=== PATIENT | male | born 1955 | race Hispanic/Latino ===

== ENCOUNTER 2016-12-30 22:05 | Emergency (ER) | payer OTHER ==
[~2016-12-30] VITALS: Ht 167.6 cm; Wt 164.0 kg
[~2016-12-30 22:05] MED LIST: ATOR40TA69 PO; CARV12.52 PO; FLUO20CA25 PO; RANI300T4 PO; ZIT250 PO; ZOV800 PO
[2016-12-30 22:17] VITALS: BP 174/85; PULSE 102; RESP 18; O2SAT 97
--- NOTE | 2016-12-30 22:26 | ED.REPORT ---
HPI-Chest Pain 40 and Over Date of Service Dec 30, 2016 ED Provider: Dr. Estevan Pastrana MD A 61 year old male with a history of SD x4, CAD s/p LAD stent, hyperlipidemia, CVA and diabetes mellitus presents to the ED with chest pain that began yesterday.The pain in his chest has been constant since onset. He reports that the pain initially felt like indigestion and radiated up to his sternum. Associated symptoms include numbness in his arms, subjective fever, shortness of breath and epigastric pain. Patient states that he begins to experience dizziness after standing up. His current symptoms feel similar to his previous SD and he rates his current pain as a 9/10. Patient reports taking 81mg of aspirin this morning. Nursing Notes Stated Complaint: CHEST PAIN Chief Complaint: Chest Pain Nursing Notes Reviewed: Yes Allergies: Coded Allergies: No Known Allergies (Verified , 07/01/16) Scheduled Acyclovir (Acyclovir) 800 Mg Tab 800 MG PO 5XD Atorvastatin Calcium (Atorvastatin Calcium) 40 Mg Tablet 40 MG PO ONCE Azithromycin (Zithromax) 250 Mg Tablet 250 MG PO DAILY Carvedilol (Carvedilol) 12.5 Mg Tablet 12.5 MG PO BID Fluoxetine (Fluoxetine) 20 Mg Capsule 40 MG PO ONCE Ranitidine (Ranitidine) 300 Mg Tablet 300 MG PO ONCE General Time Seen by MD: 22:25 Chief Complaint Chest pain Hx Obtained From: Patient Arrived By: Walk-in Sudden in Onset?: No Onset Occurred: 1 - 4 hours ago Symptom Duration: Since onset Location: : Chest left: Chest right: Epigastric Quality: Painful Radiation: : Abdomen Migration/Movement: Reports: Chest to abdomen Severity: Current: Pain level 9 out of 10 Severity: Maximum: Pain level 9 out of 10 Associated with: Reports: Diaphoresis, Numbness/Tingling, Shortness of Breath Pertinent Negative: Pt denies other symptoms Recent Healthcare: No recent doctor visit, No recent hospitalization Risk Factors )( CAD Risk Stratification Diabetes mellitus Hyperlipidemia Hypertension Known CAD Risk factors reviewed )( TAD Risk Stratification Hypertension Risk factors reviewed )( PE Risk Stratification Risk factors reviewed Past Medical History Past Medical History 1. Coronary artery disease, status post anterior STEMI and LAD stent in January 2009. Most recent heart catheterization on September 26, 2009, showed mild diffuse disease in the LAD and left circumflex. NSTEMI 05/04/2015 2. Diabetes mellitus type 2. 3. Hypertension. 4. Hyperlipidemia. 5. 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 perforated gastroduodenal ulcer 7. H pylori infection 8. 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 Past Surgical History laparotomy with antrectomy for perforated gastroduodenal ulcer stenting of LAD Reports: CABG Family History Noncontributory Smoking History Current Every Day Smoker Social History Alcohol Use: Denies alcohol use Drug Use: Denies drug use Other Social History: Good social support, , Local resident Ambulatory Status Independent Review of Systems Constitutional: Reports: Fever (subjective ) Respiratory: Reports: Shortness of breath Cardiovascular: Reports: Chest pain GI: Reports: Abdominal pain (epigastric ) Neurologic: Reports: Dizziness, Numbness (upper extremities) Complete sys rev & neg: except as marked. Physical Exam Initial Vital Signs Vital Signs (First) Date Time Temp Pulse Resp B/P Pulse Ox O2 Delivery O2 Flow Rate FiO2 12/30/16 22:17 36.6 102 18 174/85 97 Room Air Initial VS: Reviewed Head / Eyes: Atraumatic, Normocephalic, PERRL Neck: Supple, Non-tender, Full range of motion Extremities: Vascular intact, Neuro intact, No swelling, No tenderness Skin: Warm, Dry, No cyanosis Neurologic: Alert, Oriented, Nonfocal Psychiatric: Mood/affect normal, Behavior normal, Normal thought content General/Constitutional: Awake, Alert, Well appearing, Well developed Respiratory / Chest: Atraumatic, Breath sounds NL, Breath sounds = bilat, No respiratory distress Chest Wall / Ribs: Positive: Chest tender upper L, Chest tender upper R Cardiovascular: Heart rate NL, Regular rhythm, Heart sounds NL CARDIO: Trace peripheral edema Abdomen: Atraumatic, Soft Tenderness/Guarding/Rebound: Positive: Tender LLQ..., Tender epigastric Interpretation & Diagnostics Lab Results Interpretation Result Diagram: 12/30/16222412/30/162224 Test 12/30/16 22:25 White Blood Count 15.9th/mm3 (3.8-10.1) Red Blood Count 4.63mil/mm3 (4.40-5.80) Hemoglobin 7.8g/dL (13.8-17.2) Hematocrit 39.1% (41.0-50.0) Mean Corpuscular Volume 84.4fL (81-100) Mean Corpuscular Hemoglobin 16.8pg (27.0-35.0) Mean Corpuscular Hemoglobin Concent 19.9% (32.0-37.0) Red Cell Distribution Width 16.7% (12.3-15.4) Platelet Count 328bil/L (150-400) Neutrophils (%) (Auto) 69.3% (40-74) Lymphocytes (%) (Auto) 12.1% (14-46) Monocytes (%) (Auto) 6.3% (4-12) Eosinophils (%) (Auto) 11.5% (0-5) Basophils (%) (Auto) 0.4% (0-3) D-Dimer 2.09mg/L FEU (<0.50) Sodium Level 135mEq/L (134-144) Potassium Level 5.0mEq/L (3.5-5.2) Chloride Level 99mEq/L (97-108) Carbon Dioxide Level 21mmol/L (18-29) Blood Urea Nitrogen 16mg/dL (8-27) Creatinine 1.00mg/dL (0.76-1.27) Estimat Glomerular Filtration Rate 81mL/min (>59) Glucose Level 307mg/dL (60-99) Calcium Level 9.1mg/dL (8.5-10.1) Magnesium Level 1.9mg/dL (1.6-2.6) Total Bilirubin 0.2mg/dL (0.0-1.2) Aspartate Amino Transf (AST/SGOT) 24U/L (0-50) Alanine Aminotransferase (ALT/SGPT) 18U/L (0-44) Alkaline Phosphatase 116U/L (25-160) Troponin T 0.010ug/L (0.0-0.011) Total Protein 7.3g/dL (6.4-8.4) Albumin 3.8g/dL (3.4-5.0) Hold Paige Top Tube Received (Received) ECG Interpretation ECG Interpretation: Sinus rhythm Rate 98 Inferior infarct Time: 22:19 Interpreted by: ED physician X-Ray Chest Interpretation Chest Xray Interpretation: IMPRESSION: Right middle lobe infiltrate Interpretation / Wet Read by: Wet read ED physician Re-Eval/Medical Decision Time of Eval: 01:17 Patient Status: Condition improved Re-Evaluation/Progress Note: Pt is informed of his lab results, EKG results and chest X-ray results. He understands and agrees with the current treatment plan to obtain a CT following elevated D-dimer. Time of Eval: 02:46 Patient Status: Condition improved Re-Evaluation/Progress Note: Pt's symptoms have improved. He is informed of his CT results and diagnosis. All questions about follow-up are addressed. Counseled Regarding: Diagnosis, Lab results, Need for follow-up, When/why to return to ED Discharge & Departure Shift Change Sign-Out Patient Care Transferred: Yes Discussed Complaint(s): Yes Laboratory Evaluation: Lab evaluation discussed Imaging Studies: Ordered, not yet done Response to Therapy: Unchanged Dr. Powell Primary Impression: Chest pain Disposition: Home Discharge Condition All VS Reviewed: Yes Condition: Improved Referrals: [facility] (PCP) Sameer Rea MD Care Transferred to: Dr. Powell Care Transferred at: 03:00 Scribe Attestation Portions of this note were transcribed by Anny Luz. I, Dr. Pastrana personally performed the history, physical exam and medical decision-making; I reviewed and confirmed the accuracy of the information in the transcribed note. Signed by: Emelyn Benedict, 12/31/16 0130. copies to: [facility]; Sameer Rea MD, Kirk H MD Dec 30, 2016 22:26 ANNY LUZ Dec 30, 2016 22:32 personally performed the history, physical exam and medical decision-making; I reviewed and confirmed the accuracy of the information in the transcribed note. Signed by: Emelyn Benedict, 12/31/16 0130. copies to: [facility]; Sameer Rea MD, Kirk H MD Dec 30, 2016 22:26 ANNY LUZ Dec 30, 2016 22:32
[2016-12-30] MEDS ORDERED: 0.9% Sodium Chloride 1,000 ML IV ONE (22:31)
[2016-12-30 22:34] LABS: BASOPHILS % (AUTO) 0.4 % (0-3); EOSINOPHILS % (AUTO) 11.5 % (0-5); MONOCYTES % (AUTO) 6.3 % (4-12); Mean Corpuscular Hemoglobin 16.8 pg (27.0-35.0); Mean Corpuscular Volume 84.4 fL (81-100); NEUTROPHILS % (AUTO) 69.3 % (40-74); Platelet Count 328 bil/L (150-400)
[2016-12-30] MEDS ORDERED: Nitroglycerin 2% 1 Gm Ointment TOPICAL ONE (22:35)
[2016-12-30] MEDS ORDERED: Ondansetron 2 mg/mL 2 mL Inj IVPUSH ONE (22:35)
[2016-12-30 22:54] LABS: TROPONIN T 0.01 ug/L (0.0-0.011)
[2016-12-30 23:05] LABS: Magnesium 1.9 mg/dL (1.6-2.6)
[2016-12-30 23:23] VITALS: BP 130/76; PULSE 98; RESP 17; O2SAT 95
[2016-12-31 01:08] VITALS: BP 120/88; PULSE 95; O2SAT 100
[2016-12-31 01:40] VITALS: BP 140/84; PULSE 103; RESP 18; O2SAT 94
[2016-12-31 04:29] VITALS: BP 134/77; PULSE 86; RESP 16; O2SAT 95
--- NOTE | 2016-12-31 08:45 | DRSVH ---
PROCEDURE: CT ANGIO CHEST PULMONARY EMBOLISM ([id number]) INDICATIONS: tachycardia, chest pain TECHNIQUE: After the administration of intravenous contrast, 2 mm thick sections acquired from the pulmonary api cuca to the posterior costophrenic angles. 3-dimensional maximum intensity projection (MIP) coronal a nd sagittal reformats were then acquired through the thorax. For radiation dose reduction, the follo wing was used: automated exposure control, adjustment of mA and/or kV according to patient size. COMPARISON: [facility], CT, ABD/PELVIS W/CON (PNL), 09/05/2014, 10:58. [facility], CT, ABD/PELVIS W/O CON (PNL), 09/24/2014, 12:31. [facility], CT, ABD/PELVIS W/CON (PNL), 08/22/2014, 17:05. [facility], CT, CT ANGIO CHEST, 05/04/2015, 21:19. FINDINGS: Image quality: Excellent. Pulmonary arteries: Pulmonary arteries are normal in size, and demonstrate no intraluminal filling d efects to suggest central pulmonary embolism. Lungs and pleura: This is noted in the dependent portions of the lung bases. No pleural effusions or pneumothorax. Central and peripheral airways are patent. Mediastinum: Heart size is normal, without pericardial effusion. Presence of an endovascular stent n oted in the left coronary vasculature. No mediastinal or hilar adenopathy. Thoracic aorta is normal in caliber and enhancement. Esophagus is normal in caliber, without hiatal hernia. Bones and chest wall: No suspicious bony lesions. Ribs and thoracic spine appear intact throughout. Thyroid gland is within normal limits. No axillary or supraclavicular adenopathy. Abdomen: Multiple surgical clips noted adjacent to the GE junction; please correlate with surgical h istory. Small cysts versus hemangiomas noted in the liver which are stable compared to prior CT scans Visualized upper abdominal solid organs otherwise appear normal in the early arterial phase of enhanc ement. IMPRESSION: No pulmonary embolus. Dictated by: Shefali Pond MD, PhD on 12/31/2016 at 8:29 Approved by: Shefali Pond MD, PhD on 12/31/2016 at 8:43
--- NOTE | 2016-12-31 09:49 | DRSVH ---
PROCEDURE: X-RAY CHEST ONE VIEW, PORTABLE ([id number]) INDICATIONS: CHEST PAIN TECHNIQUE: One view of the chest was acquired. COMPARISON: [facility], CR, XR CHEST 1VW (PORTABLE), 07/01/2016, 2:44. FINDINGS: Surgical changes and devices: Epigastric surgical clips. Lungs and pleura: No pleural effusions or pneumothorax. Lungs are clear. Lung volumes are low. Mediastinum: Mediastinal contours appear normal. Heart size is normal. Bones and chest wall: No suspicious bony lesions. Overlying soft tissues appear unremarkable. IMPRESSION: Expiratory chest demonstrating no definite acute cardiopulmonary process. Dictated by: Nimesh Rose RRA Interpreted: Marichuy Loving MD on 12/31/2016 at 9:47 Transcribed by: EDWARD on 12/31/2016 at 9:48 Approved by: Marichuy Loving M.D. on 01/01/2017 at 8:09
== END 2016-12-31 04:30 | disposition home or self-care (01) ==
LOC: SED 22:05
DX: R07.9 Chest pain, unspecified (principal); E11.9 Type 2 diabetes mellitus without complications; I10 Essential (primary) hypertension; E78.5 Hyperlipidemia, unspecified; I25.2 Old myocardial infarction; Z86.73 Personal history of transient ischemic attack (TIA), and cerebral infarction without residual deficits; F17.200 Nicotine dependence, unspecified, uncomplicated; Z95.1 Presence of aortocoronary bypass graft
CPT/HCPCS: 36415; 71010; 71275; 80053; 82948; 83735; 84484; 85025; 85378; 93005; 96361; 96374; 96375; 99285; J2060; J2270; J2405; J7030; Q9967

== ENCOUNTER 2017-03-25 20:13 | Emergency (ER) | payer MEDICAID, OTHER ==
[~2017-03-25 20:13] MED LIST changes: +ASPI81TA3 PO; +Artificial Tears RIGHT_EYE; +CLOP75TA28 PO; +CLOT15CR66 TP; +INSLIS SUBQ; +INSU100V7 SUBQ; +LISI-567 PO; +OXYC1TAB24 PO; +PRED-508 PO; +TOPI25TA34 PO; +VALA500T2 PO; -ZIT250 PO; -ZOV800 PO
[2017-03-25 20:21] VITALS: BP 172/85; PULSE 96; RESP 18; O2SAT 98
--- NOTE | 2017-03-25 20:28 | ED.REPORT ---
HPI-Stroke / CVA Mar 25, 2017 ED Provider: Robert Galdamez DO A 61 year old male on Plavix and aspirin with a history of CVAs, stent x2, diabetes, hypertension, CAD, MO x4, Campbell's palsy and hyperlipidemia presents to the ED due to a possible stroke with last known normal of 19:30. The pt's first CVA was two years ago with speech and memory deficits. He had another CVA approximately six months ago with a resulting right sided facial droop, but this seemed to have resolved by two months ago. The pt was diagnosed with Campbell' s palsy and migraines last week and discharged from the hospital on 03/19/2017. During that time, the pt experienced recurrent right-sided facial droop, right extremities numbness and right extremity weakness. The pt began experiencing a headache thirty minutes ago and his soon noticed increased right facial droop and right-sided weakness. The pt admits to nausea but denies vomiting. The pt denies history of seizures. Nursing Notes Stated Complaint: CHEST PAIN, NUMBNESS ON RIGHT KNEE DOWN, HEADACHE Chief Complaint: Stroke Symptoms Nursing Notes Reviewed: Yes Allergies: Coded Allergies: No Known Allergies (Verified , 03/25/17) Scheduled ([Artificial Tears]) 15 DROP/ML SOLUTION 1-2 DROP RIGHT_EYE TID Aspirin Chew (Aspirin Chew) 81 Mg Chew 81 MG PO QAM (Reported) Atorvastatin Calcium (Atorvastatin Calcium) 40 Mg Tablet 40 MG PO HS (Reported) Carvedilol (Carvedilol) 12.5 Mg Tablet 12.5 MG PO BID (Reported) Clopidogrel (Clopidogrel) 75 Mg Tablet 75 MG PO DAILY Clotrimazole (Itch Relief) 1 % Cream..g. 1 APPLIC TP QAM (Reported) TO FEET AFTER SHOWER Fluoxetine (Fluoxetine) 20 Mg Capsule 40 MG PO QAM (Reported) Insulin Glargine (Lantus U100 Insulin Vial) 100 Unit/Ml Vial 25 UNIT SUBQ QAM Insulin Human Lispro (HumaLOG U100 Insulin Vial) 100 Unit/Ml Unit 5 UNIT SUBQ BIDWM (Reported) Check blood sugars before meals and at bedtime. Use correction factor only before meals. Blood Sugar Lispro Correction: <151, 0 units; 151-175, 1 unit; 176-200, 2 units; 201-225, 3 units; 226-250, 4 units; 251-275, 5 units; 276-300 , 6 units; 301-325, 7 units; 326-350, 8 units; 351-375, 9 units; 376-400, 10 units; >400, 12 units. Insulin Human Lispro (HumaLOG U100 Insulin Vial) 100 Unit/Ml Unit 0 UNIT SUBQ WMHS Check blood sugars before meals and at bedtime. Use correction factor only before meals. Blood Sugar Lispro Correction: <151, 0 units; 151-175, 1 unit; 176-200, 2 units; 201-225, 3 units; 226-250, 4 units; 251-275, 5 units; 276-300 , 6 units; 301-325, 7 units; 326-350, 8 units; 351-375, 9 units; 376-400, 10 units; >400, 12 units. Lisinopril (Lisinopril) 20 Mg Tablet 20 MG PO QAM (Reported) Prednisone (Deltasone) 20 Mg Tablet 60 MG PO DAILY Ranitidine (Ranitidine) 300 Mg Tablet 300 MG PO HS (Reported) Topiramate (Topamax) 25 Mg Tablet 25 MG PO BID Valacyclovir HCl (Valtrex) 500 Mg Tablet 1,000 MG PO TID Scheduled PRN oxyCODONE-Acetaminophen 5-325 mg (oxyCODONE-Acetaminophen 5-325 mg) 1 Each Tablet 1 TAB PO Q6H PRN PRN For Pain General Time Seen by Provider: 20:28 Chief Complaint Other (Possible stroke) Hx Obtained From: Patient Arrived By: Walk-in Time last known well 19:30 Sudden in Onset?: Yes Symptom Duration: Since onset Progression Since Onset: Unchanged Recent Healthcare: Recent doctor visit, Recent hospitalization Similar Sx Previous: Yes Risk Factors Risk Notes: Not a TPA candidate due to prior CVA within 3 months NIH Stroke Scale Level of Consciousness: Alert and responsive (0) Ask Month & Age: Both questions right (0) Open/Close Eyes/Hand Biological Inspector: Performs both tasks (0) Horizontal EO Movements: None (0) Visual Mathur: Partial hemianopsia (1) Facial Palsy: Unil complete, up&low (3) Right Arm Motor Drift (10s): No drift 10 sec (0) Left Arm Motor Drift (10s): No drift 10 sec (0) Right Leg Motor Drift (5s): Drift, not touch bed (1) Left Leg Motor Drift (5s): No drift 5 sec (0) Limb Ataxia FNF/Heel-Velázquez: No ataxia (0) Sensation (Arms/Legs/Face): Pinprick less sharp (1) Language Aphasia: No aphasia, normal (0) Dysarthria: No dysarthria, normal (0) Extinction/Inattention: No exctinct/inattent (0) NIHSS Score: 5 Time NIHSS Performed: 20:28 Date NIHSS Performed: Mar 25, 2017 Past Medical History Past Medical History 1. Coronary artery disease, status post anterior STEMI and LAD stent in January 2009. Most recent heart catheterization on September 26, 2009, showed mild diffuse disease in the LAD and left circumflex. NSTEMI 05/04/2015 2. Diabetes mellitus type 2. 3. Hypertension. 4. Hyperlipidemia. 5. 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 perforated gastroduodenal ulcer 7. H pylori infection 8. MO x4 9. 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 Past Surgical History laparotomy with antrectomy for perforated gastroduodenal ulcer stenting of LAD Reports: CABG Family History Noncontributory Smoking History Current Every Day Smoker Social History Alcohol Use: Denies alcohol use Drug Use: Denies drug use Other Social History: Good social support, , Local resident Ambulatory Status Independent Review of Systems Review of Systems Note: right-sided weakness right facial droop Respiratory: Denies: Non-productive cough, Shortness of breath Cardiovascular: Denies: Chest pain GI: Denies: Abdominal pain, Vomiting Musculoskeletal: Denies: Back pain, Neck pain Skin: Denies Rash Neurologic: Reports: Headache Complete sys rev & neg: except as marked. Physical Exam Initial Vital Signs Vital Signs (First) Date Time Temp Pulse Resp B/P Pulse Ox O2 Delivery O2 Flow Rate FiO2 03/25/17 20:21 36.9 96 18 172/85 98 Room Air Initial VS: Reviewed General/Constitutional: Awake, Alert, No acute distress Head / Eyes: Atraumatic, Normocephalic, PERRL, EOMI Neck: Atraumatic, Supple, Full range of motion Respiratory / Chest: Atraumatic, Breath sounds NL, Breath sounds = bilat, No respiratory distress Cardiovascular: Heart rate NL, Regular rhythm, Heart sounds NL Neurologic: Oriented X3, Speech NL complete right-sided facial weakness and facial droop including inability to close his eye ENT: Atraumatic, Airway patent, Mucous membranes moist Abdomen: Atraumatic, Soft, Non-tender Upper Extremity / MS: Atraumatic, Full range of motion Lower Extremity / Pelvis / MS: Atraumatic, Full range of motion Skin: Atraumatic, Color NL, No rash, Warm, Dry Psychiatric: Affect NL, Mood NL Back: Atraumatic, Full range of motion Interpretation & Diagnostics Lab Results Interpretation Result Diagram: 03/25/17205203/25/172052 Test 03/25/17 20:53 03/25/17 20:54 03/25/17 21:30 White Blood Count 13.1th/mm3 (3.8-10.1) Red Blood Count 4.94mil/mm3 (4.40-5.80) Hemoglobin 14.1g/dL (13.8-17.2) Hematocrit 41.6% (41.0-50.0) Mean Corpuscular Volume 84.2fL (81-100) Mean Corpuscular Hemoglobin 28.5pg (27.0-35.0) Mean Corpuscular Hemoglobin Concent 33.9% (32.0-37.0) Red Cell Distribution Width 15.6% (12.3-15.4) Platelet Count 325bil/L (150-400) Neutrophils (%) (Auto) 56.7% (40-74) Lymphocytes (%) (Auto) 27.5% (14-46) Monocytes (%) (Auto) 7.5% (4-12) Eosinophils (%) (Auto) 6.3% (0-5) Basophils (%) (Auto) 0.2% (0-3) Prothrombin Time 9.6sec (8.1-12.5) Prothromb Time International Ratio 0.90ratio Activated Partial Thromboplast Time 23.5sec (22.8-33.0) Sodium Level 135mEq/L (134-144) Potassium Level 4.4mEq/L (3.5-5.2) Chloride Level 100mEq/L (97-108) Carbon Dioxide Level 22mmol/L (18-29) Blood Urea Nitrogen 26mg/dL (8-27) Creatinine 0.88mg/dL (0.76-1.27) Estimat Glomerular Filtration Rate 94mL/min (>59) Glucose Level 295mg/dL (60-99) Calcium Level 8.5mg/dL (8.5-10.1) Total Bilirubin 0.2mg/dL (0.0-1.2) Aspartate Amino Transf (AST/SGOT) 28U/L (0-50) Alanine Aminotransferase (ALT/SGPT) 44U/L (0-44) Alkaline Phosphatase 82U/L (25-160) Troponin T < 0.010ug/L (0.0-0.011) Total Protein 6.8g/dL (6.4-8.4) Albumin 3.6g/dL (3.4-5.0) Alcohols < 10mg/dL (0-10) Hold Paige Top Tube Received (Received) Urine Color Yellow (YELLOW) Urine Appearance Clear (CLEAR,HAZY) Urine pH 6.0 (5.0-8.0) Urine Specific Hurley 1.025 (1.003-1.035) Urine Protein Negativemg/dL (NEG,TRACE) Urine Glucose (UA) >1000mg/dL (NEGATIVE) Urine Ketones Negativemg/dL (NEGATIVE) Urine Occult Blood Negative (NEGATIVE) Urine Nitrite Negative (NEGATIVE) Urine Bilirubin Negative (NEGATIVE) Urine Urobilinogen Normalmg/dL (NORMAL) Urine Leukocyte Esterase Negative (NEGATIVE) Urine RBC 0-2/hpf (0-2) Urine WBC 0-5/hpf (0-5) Urine Epithelial Cells Few/hpf (NONE-MOD) Urine Crystals None seen (NONE SEEN) Urine Bacteria Few/hpf (NONE-FEW) Urine Hyaline Casts None/lpf (NONE) Urine Granular Casts None seen (NONE SEEN) Urine Waxy Casts None seen (NONE SEEN) Urine Red Blood Cell Casts None seen (NONE SEEN) Urine White Blood Cell Casts None seen (NONE SEEN) Urine Mucus None seen (None Seen) Urine Trichomonas None seen (NONE SEEN) Urine Yeast None (NONE SEEN) Urinalysis Comment None Urine Culture Reflexed Not indicated ECG Interpretation ECG Interpretation: normal sinus rhythm with a rate of [address] abnormalities old inferior infarct when compared to previous dated 03/17/2017, heart rate is faster Time: 20:28 Interpreted by: ED physician X-Ray Chest Interpretation Chest Xray Interpretation: IMPRESSION: No acute pulmonary process. Dictated by: Naty Varela M.D. on 03/25/2017 at 21:07 Approved by: Naty Varela M.D. on 03/25/2017 at 21:08 Interpretation / Wet Read by: Interpret - Radiologist CT Head Interpretation IMPRESSION: 1. No acute intracranial process. 2. Mild atrophy and chronic microvascular ischemic changes. 3. Left frontal temporal encephalomalacia consistent with old left MCA infarction. The above findings were discussed with Dr. Robert Galdamez on 03/25/17 at 8:50 PM. This study fulfills neurological imaging criteria for inclusion or exclusion of acute stroke therapies based on available published neurological guidelines. Dictated by: Naty Varela M.D. on 03/25/2017 at 20:50 Approved by: Naty Varela M.D. on 03/25/2017 at 20:54 Interpretation / Wet Read by: Interpret - Radiologist Re-Eval/Medical Decision Med Decision/Clinical Course 61-year-old male with a remote history of CVA and multiple MIs presents with severe headache onset just prior to arrival. He was admitted and evaluated last week for another potential stroke, but MRI did not show any acute abnormalities and he left being diagnosed with a migraine headache and Campbell's palsy. Today his neurologic deficits appear to be a baseline, and his head CT shows no acute findings. Patient and his were under the understanding last week that he had had a stroke, but I clarified this with him and discussed treatment of his migraines and Campbell's palsy. He will continue his current medications and follow up with his PCP on Saturday as scheduled. Source of Hx: Old records Re-Evaluation/Progress #1: Time of Eval: 21:08 Re-Evaluation/Progress Note: Pt rechecked, who is resting. Additional physical exam is performed. Re-Evaluation/Progress #2: Time of Eval: 23:59 Patient Status: Condition improved Re-Evaluation/Progress Note: Pt rechecked, who is resting. The diagnosis and plan for discharge are discussed. The pt understands and agrees with the plan. All questions are addressed at this time. Counseled Regarding: Diagnosis, Lab results, Need for follow-up, When/why to return to ED Patient Discharge & Departure Impression: Primary Impression: Migraine headache Migraine type: unspecified Status migrainosus presence: with status migrainosus Intractability: not intractable Qualified Code: G43.901 - Migraine, unspecified, not intractable, with status migrainosus Additional Impression: Campbell's palsy Disposition: Home Discharge Condition All VS Reviewed: Yes Condition: Stable Patient Instructions: Campbell Palsy (ED), Migraine Headache (ED) Additional Instructions: Thank you for entrusting us with your care. Your evaluation was reassuring. Continue your usual medications. Call your primary care physician to arrange a follow up appointment in the next several days. Return to the emergency department if you develop any new or worsening symptoms. Referrals: [facility] (PCP) Scribe Attestation Portions of this note were transcribed by Fransisco Weeks. I, Dr. Galdamez personally performed the history, physical exam and medical decision-making; I reviewed and confirmed the accuracy of the information in the transcribed note. copies to: [facility] Robert Galdamez DO Mar 25, 2017 20:28 FRANSISCO WEEKS Mar 25, 2017 20:37
[2017-03-25 20:56] LABS: BASOPHILS % (AUTO) 0.2 % (0-3); EOSINOPHILS % (AUTO) 6.3 % (0-5); MONOCYTES % (AUTO) 7.5 % (4-12); Mean Corpuscular Hemoglobin 28.5 pg (27.0-35.0); Mean Corpuscular Volume 84.2 fL (81-100); NEUTROPHILS % (AUTO) 56.7 % (40-74); Platelet Count 325 bil/L (150-400)
--- NOTE | 2017-03-25 20:56 | DRSVH ---
PROCEDURE: CT BRAIN TPA INDICATIONS: LEFT SIDED HEAD PAIN TECHNIQUE: Noncontrast 4.5 mm thick angled axial sections acquired from the foramen magnum to the vertex, with c oronal reformats. COMPARISON: [facility], CT, CT BRAIN WO CON, 03/17/2017, 17:26. FINDINGS: Image quality: Excellent. CSF spaces: Basal cisterns are patent. No extra-axial fluid collections. The ventricles are symmet ray in size and shape. Brain: No intracranial bleeds or masses. There is cerebral volume loss for age, with resultant vent ricular and sulcal prominence. There are periventricular and deep white matter chronic small vessel ischemic changes. There is intracranial internal carotid artery atherosclerosis. There is an unchan ged appearance of low attenuation within the right frontal temporal lobe. Skull and face: Calvarium and visualized facial bones appear intact, without suspicious lesions. Sinuses: Visualized sinuses and mastoids are clear. IMPRESSION: 1. No acute intracranial process. 2. Mild atrophy and chronic microvascular ischemic changes. 3. Left frontal temporal encephalomalacia consistent with old left MCA infarction. The above findings were discussed with Dr. Robert Galdamez on 03/25/17 at 8:50 PM. This study fulfills neurological imaging criteria for inclusion or exclusion of acute stroke therapie s based on available published neurological guidelines. Dictated by: Naty Varela M.D. on 03/25/2017 at 20:50 Approved by: Naty Varela M.D. on 03/25/2017 at 20:54
--- NOTE | 2017-03-25 21:09 | DRSVH ---
PROCEDURE: X-RAY CHEST ONE VIEW, PORTABLE ([id number]) INDICATIONS: LEFT SIDED WEAKNESS, STROKE PROTOCOL TECHNIQUE: One view of the chest was acquired. COMPARISON: None. FINDINGS: Surgical changes and devices: None. Lungs and pleura: No pleural effusions or pneumothorax. Lungs are clear. Mediastinum: Mediastinal contours appear normal. Heart size is normal. Bones and chest wall: No suspicious bony lesions. Overlying soft tissues appear unremarkable. IMPRESSION: No acute pulmonary process. Dictated by: Naty Varela M.D. on 03/25/2017 at 21:07 Approved by: Naty Varela M.D. on 03/25/2017 at 21:08
[2017-03-25 21:18] LABS: INR 0.9 ratio
[2017-03-25 21:23] LABS: TROPONIN T < 0.010 ug/L (0.0-0.011)
[2017-03-25 22:00] LABS: APPEARANCE,URINE CLEAR (CLEAR,HAZY); COLOR,URINE YELLOW (YELLOW); OCCULT BLOOD,URINE NEGATIVE (NEGATIVE); UROBILINOGEN,URINE NORMAL (NORMAL)
[2017-03-25] MEDS ORDERED: Ondansetron 2 mg/mL 2 mL Inj IVPUSH ONE (22:15)
[2017-03-25] MEDS ORDERED: Ketorolac 15 mg/mL Inj IVPUSH ONE (22:15)
[2017-03-26 00:27] VITALS: BP 128/63; PULSE 46; RESP 15; O2SAT 99
== END 2017-03-26 00:29 | disposition home or self-care (01) ==
LOC: SED 20:13
DX: G43.901 Migraine, unspecified, not intractable, with status migrainosus (principal); G51.0 Bell's palsy; I10 Essential (primary) hypertension; I25.2 Old myocardial infarction; I25.10 Atherosclerotic heart disease of native coronary artery without angina pectoris; E78.5 Hyperlipidemia, unspecified; E11.9 Type 2 diabetes mellitus without complications; F17.200 Nicotine dependence, unspecified, uncomplicated; Z79.4 Long term (current) use of insulin; Z79.82 Long term (current) use of aspirin; Z95.5 Presence of coronary angioplasty implant and graft; Z95.1 Presence of aortocoronary bypass graft
CPT/HCPCS: 36415; 70450; 71010; 80053; 81000; 84484; 85025; 85610; 85730; 93005; 96374; 96375; 99285; G0480; J1885; J2405